=== PATIENT | male | born 1945 | race Caucasian/White ===

== ENCOUNTER 2023-01-24 13:26 | Inpatient (IN) | payer OTHER, MEDICARE ==
[2023-01-24] VITALS (14 sets, daily range): BP systolic 130–158; BP diastolic 67–82
[~2023-01-24] VITALS: Ht 172.7 cm; Wt 83.4 kg
[~2023-01-24 13:26] MED LIST: ALBU90OI INH; ATEN100 PO; ATEN25 PO; ATOR10 PO; AZIT250 PO; Aspir 8181 MG PO; DOCU100 PO; DOXA2 PO; DOXA4 PO; FISH1000 PO; Hair, Skin & N1 EACH PO; LISI10 PO; LISI20 PO; LISI5 PO; MIRALAX17 GM PO; ROSU5 PO; RXCODGUASY PO
[2023-01-24 16:21] LABS: Hematocrit 20.2 % (37.0-53.0); Hemoglobin 7.3 g/dL (13.5-17.5); Mean Corpuscular HGB 38.2 pg (26.0-34.0); Mean Corpuscular HGB Conc 36.1 g/dL (31.5-36.5); Mean Corpuscular Volume 106 fL (80-100); Platelet Count 104 K/mm3 (150-400); RDW Coefficient Variation 15.5 % (11.7-14.2); RDW Standard Deviation 59.1 fL (35.1-46.3); Red Blood Cell Count 1.91 M/mm3 (4.30-5.90)
[2023-01-24 16:23] LABS: White Blood Cell Count 0.93 K/mm3 (4.00-11.30)
[2023-01-24 16:43] LABS: Albumin, Blood 3.2 g/dL (3.4-5.0); Albumin/Globulin Ratio 1.1 (0.8-1.8); Bilirubin, Total 0.8 mg/dL (0.1-1.0); Bun/Creatinine Ratio 16.8 (12.0-20.0); Calcium, Blood 8.6 mg/dL (8.5-10.1); Creatinine, Blood 0.89 mg/dL (0.60-1.20); Globulin, Blood 2.8 g/dL (2.2-4.0); Potassium, Blood 4.1 mmol/L (3.5-5.5)
[2023-01-24 16:47] LABS: BASOPHILS PERCENT MAN 0 % (0-2); EOSINOPHILS ABSOLUTE MAN 0.01 K/mm3 (0.00-0.68); EOSINOPHILS PERCENT MAN 2 % (0-6); LYMPHOCYTES ABSOLUTE MAN 0.76 K/mm3 (0.84-5.20); LYMPHOCYTES PERCENT MAN 82 % (21-46); MONOCYTES PERCENT MAN 0 % (4-13); NEUTROPHILS ABSOLUTE MAN 0.14 K/mm3 (1.96-9.15); SEG NEUTROPHILS PERCENT MAN 16 % (41-73); TOTAL CELLS COUNTED 50
[2023-01-24 16:54] LABS: Source, Urine Voided
[2023-01-24 16:57] LABS: Appearance, Urine Clear (Clear); Bilirubin, Urine Neg (Neg); Blood, Urine Neg (Neg); Color, Urine Yellow (P-Yellow); Glucose Qualitative, Urine Neg (Neg); Ketones, Urine Neg (Neg); Leukocyte Esterase, Urine Neg (Neg); Nitrite, Urine Neg (Neg); Protein, Urine Neg (Neg); Specific Gravity, Urine 1.015 (1.003-1.022); Urobilinogen, Urine NORM (Normal)
[2023-01-24 17:41] LABS: IMMATURE RETIC FRACTION 16.5 % (2.3-16.0); RETIC HGB EQUIVALENT 41.1 pg (28.20-36.60); RETICULOCYTE COUNT PERCENT 2.19 % (0.50-2.50)
[2023-01-24 18:05] LABS: Percent Saturation 16.8 % (20.0-50.0)
[2023-01-24 20:58] LABS: Hematocrit 19.8 % (37.0-53.0); Mean Corpuscular HGB 38.3 pg (26.0-34.0); Mean Corpuscular HGB Conc 35.4 g/dL (31.5-36.5); Mean Corpuscular Volume 108 fL (80-100); Mean Platelet Volume 10.2 fL (9.1-12.4); Platelet Count 96 K/mm3 (150-400); RDW Coefficient Variation 15.6 % (11.7-14.2); RDW Standard Deviation 60.4 fL (35.1-46.3); Red Blood Cell Count 1.83 M/mm3 (4.30-5.90)
[2023-01-24 21:03] LABS: BASOPHILS PERCENT AUTO 0 % (0-2); EOSINOPHILS ABSOLUTE AUTO 0.03 K/mm3 (0.00-0.68); EOSINOPHILS PERCENT AUTO 4 % (0-6); IMMATURE GRAN PERCENT AUTO 0 % (0-1); LYMPHOCYTES ABSOLUTE AUTO 0.43 K/mm3 (0.84-5.20); LYMPHOCYTES PERCENT AUTO 60 % (21-46); MONOCYTES ABSOLUTE AUTO 0.05 K/mm3 (0.16-1.47); MONOCYTES PERCENT AUTO 7 % (4-13); NEUTROPHILS ABSOLUTE AUTO 0.21 K/mm3 (1.96-9.15); NEUTROPHILS PERCENT AUTO 29 % (41-73)
[2023-01-24 21:23] LABS: White Blood Cell Count 0.72 K/mm3 (4.00-11.30)
[2023-01-24] MEDS ORDERED: METO25 PO (22:20)
[2023-01-25] VITALS (11 sets, daily range): BP systolic 114–164; BP diastolic 62–87
[2023-01-25 04:31] LABS: Hematocrit 21.5 % (37.0-53.0); Hemoglobin 7.8 g/dL (13.5-17.5); Mean Corpuscular HGB 37.3 pg (26.0-34.0); Mean Corpuscular HGB Conc 36.3 g/dL (31.5-36.5); Mean Platelet Volume 10.3 fL (9.1-12.4); Platelet Count 103 K/mm3 (150-400); RDW Coefficient Variation 16.9 % (11.7-14.2); RDW Standard Deviation 62.8 fL (35.1-46.3); Red Blood Cell Count 2.09 M/mm3 (4.30-5.90)
[2023-01-25 04:36] LABS: BASOPHILS PERCENT AUTO 0 % (0-2); EOSINOPHILS ABSOLUTE AUTO 0.01 K/mm3 (0.00-0.68); EOSINOPHILS PERCENT AUTO 1 % (0-6); IMMATURE GRAN PERCENT AUTO 0 % (0-1); LYMPHOCYTES ABSOLUTE AUTO 0.38 K/mm3 (0.84-5.20); LYMPHOCYTES PERCENT AUTO 47 % (21-46); MONOCYTES PERCENT AUTO 12 % (4-13); Mean Corpuscular Volume 103 fL (80-100); NEUTROPHILS ABSOLUTE AUTO 0.32 K/mm3 (1.96-9.15); NEUTROPHILS PERCENT AUTO 40 % (41-73)
[2023-01-25 04:37] LABS: White Blood Cell Count 0.81 K/mm3 (4.00-11.30)
[2023-01-25 05:08] LABS: Albumin, Blood 2.7 g/dL (3.4-5.0); Albumin/Globulin Ratio 0.9 (0.8-1.8); Bun/Creatinine Ratio 17.4 (12.0-20.0); Calcium, Blood 7.9 mg/dL (8.5-10.1); Creatinine, Blood 1.09 mg/dL (0.60-1.20); Globulin, Blood 2.9 g/dL (2.2-4.0); Magnesium, Blood 1.6 mg/dL (1.6-2.4); Potassium, Blood 4.6 mmol/L (3.5-5.5); Total Protein, Blood 5.6 g/dL (6.4-8.2)
--- NOTE | 2023-01-25 17:59 | NUR ---
SUMMARY NO ACUTE CHANGES T/O SHIFT. PT'S JOSE COHEN THIS AM, HAS VOIDED ONCE. STOOD AT BEDSIDE AND THEN SAT IN RECLINER FOR APPROXIMATELY 1 HR. PAINFUL WITH MOVEMENT. MEDICATED PER ORDERS FOR PAIN. CALL LIGHT IN REACH.
[2023-01-26 02:14] VITALS: BP 133/75
--- NOTE | 2023-01-26 06:44 | NUR ---
SHIFT SUMMARY PT A&OX4, AND COOPERATIVE WITH CARE. NO ACUTE CHANGES, VSS. MEDICATING FOR PAIN PER EMAR. NPO EXCEPT FOR WATER WITH MEDICATION. SBA TO VOID. PT REPORTS NOT PASSING ANY FLATUS YET. MIDLINE GERARD WITH SMALL AMOUNT OF DRIED DRAINAGE, COMPRESSED. ABD BINDER IN PLACE WITH HEATING PAD FOR COMFORT. CALLS APPROPRIATELY, CALL LIGHT WITHIN REACH.
[2023-01-26 07:42] VITALS: BP 146/77
[2023-01-26 09:23] LABS: Hematocrit 21.6 % (37.0-53.0); Hemoglobin 7.5 g/dL (13.5-17.5); Mean Corpuscular HGB 36.6 pg (26.0-34.0); Mean Corpuscular HGB Conc 34.7 g/dL (31.5-36.5); Mean Corpuscular Volume 105 fL (80-100); Mean Platelet Volume 9.9 fL (9.1-12.4); Platelet Count 100 K/mm3 (150-400); RDW Coefficient Variation 17.3 % (11.7-14.2); RDW Standard Deviation 66.4 fL (35.1-46.3); Red Blood Cell Count 2.05 M/mm3 (4.30-5.90)
[2023-01-26 09:33] LABS: BASOPHILS PERCENT AUTO 0 % (0-2); EOSINOPHILS ABSOLUTE AUTO 0.05 K/mm3 (0.00-0.68); EOSINOPHILS PERCENT AUTO 6 % (0-6); IMMATURE GRAN PERCENT AUTO 0 % (0-1); LYMPHOCYTES ABSOLUTE AUTO 0.54 K/mm3 (0.84-5.20); LYMPHOCYTES PERCENT AUTO 61 % (21-46); MONOCYTES ABSOLUTE AUTO 0.07 K/mm3 (0.16-1.47); MONOCYTES PERCENT AUTO 8 % (4-13); NEUTROPHILS ABSOLUTE AUTO 0.23 K/mm3 (1.96-9.15); NEUTROPHILS PERCENT AUTO 26 % (41-73)
[2023-01-26 09:34] LABS: Bun/Creatinine Ratio 15.7 (12.0-20.0); Calcium, Blood 7.5 mg/dL (8.5-10.1); Creatinine, Blood 0.89 mg/dL (0.60-1.20); White Blood Cell Count 0.89 K/mm3 (4.00-11.30)
[2023-01-26 09:48] LABS: BASOPHILS PERCENT MAN 0 % (0-2); EOSINOPHILS ABSOLUTE MAN 0.03 K/mm3 (0.00-0.68); EOSINOPHILS PERCENT MAN 4 % (0-6); LYMPHOCYTES % ATYPICAL MANUAL 4 % (0-0); LYMPHOCYTES ABSOLUTE MAN 0.67 K/mm3 (0.84-5.20); LYMPHOCYTES PERCENT MAN 72 % (21-46); MONOCYTES ABSOLUTE MAN 0.07 K/mm3 (0.16-1.47); MONOCYTES PERCENT MAN 8 % (4-13); SEG NEUTROPHILS PERCENT MAN 12 % (41-73); TOTAL CELLS COUNTED 25
[2023-01-26 14:56] VITALS: BP 147/71
--- NOTE | 2023-01-26 15:48 | NUR ---
SUMMARY NO ACUTE CHANGES THUS FAR IN SHIFT. VSS. PT GOT UP TO CHAIR AND HAS AMBULATED IN ROOM. DECLINED AMBULATING IN [place] DUE TO NEUTROPENIC PRECAUTIONS, STATES WILL CONTINUE TO AMBULATE IN ROOM, ENCOURAGED PT OOB, VERBALIZED UNDERSTANDING. HAS NOT PASSED FLATUS. MEDICATED PER ORDERS FOR PAIN. CALL LIGHT IN REACH, SPOUSE BEDSIDE.
--- NOTE | 2023-01-26 16:12 | NUR ---
TURNING CARE OVER TO THOMAS Campbell RN.
[2023-01-26 19:35] VITALS: BP 153/78
[2023-01-27 02:51] VITALS: BP 149/86
--- NOTE | 2023-01-27 05:21 | NUR ---
SHIFT SUMMARY PT A&OX4, PLEASANT AND COOPERATIVE WITH CARE. NO ACUTE CHANGES, VSS. MEDICATING FOR PAIN PER EMAR. PT REMAINS NPO. NO FLATUS. INDEPENDENT IN ROOM. GERARD DRESSING WITH SMALL AMOUNT OF DRIED SS DRAINAGE. ABD BINDER IN PLACE. CALLS APPROPRIATELY, CALL LIGHT WITHIN REACH.
[2023-01-27 05:32] LABS: Hemoglobin 7.8 g/dL (13.5-17.5); Mean Corpuscular HGB 37.1 pg (26.0-34.0); Mean Corpuscular HGB Conc 35.5 g/dL (31.5-36.5); Mean Corpuscular Volume 105 fL (80-100); Mean Platelet Volume 10.5 fL (9.1-12.4); Platelet Count 102 K/mm3 (150-400); RDW Coefficient Variation 16.8 % (11.7-14.2); RDW Standard Deviation 63.2 fL (35.1-46.3)
[2023-01-27 05:42] LABS: White Blood Cell Count 0.67 K/mm3 (4.00-11.30)
[2023-01-27 06:00] LABS: Albumin, Blood 2.7 g/dL (3.4-5.0); BASOPHILS PERCENT MAN 0 % (0-2); Bilirubin, Total 0.8 mg/dL (0.1-1.0); Bun/Creatinine Ratio 13.8 (12.0-20.0); Calcium, Blood 7.7 mg/dL (8.5-10.1); Creatinine, Blood 0.87 mg/dL (0.60-1.20); EOSINOPHILS ABSOLUTE MAN 0.02 K/mm3 (0.00-0.68); EOSINOPHILS PERCENT MAN 4 % (0-6); Globulin, Blood 2.8 g/dL (2.2-4.0); LYMPHOCYTES ABSOLUTE MAN 0.42 K/mm3 (0.84-5.20); LYMPHOCYTES PERCENT MAN 64 % (21-46); MONOCYTES PERCENT MAN 0 % (4-13); NEUTROPHILS ABSOLUTE MAN 0.21 K/mm3 (1.96-9.15); SEG NEUTROPHILS PERCENT MAN 32 % (41-73); TOTAL CELLS COUNTED 25; Total Protein, Blood 5.5 g/dL (6.4-8.2)
[2023-01-27 07:30] VITALS: BP 159/84
--- NOTE | 2023-01-27 10:54 | NUR ---
NG TUBE PLACED AT THIS TIME. PT TOLERATED WELL. INSERTED IN TO RIGHT NARE. CONNECTED TO L.I.S. APPROX 50 OF RETURN BEFORE HAVING TO CLAMP SO PATIENT COULD GO TO CT. WILL RECONNECT ONCE PATIENT RETURNS.
--- NOTE | 2023-01-27 11:47 | NUR ---
PLACED BACK ONTO LOW INTERMITTENT SUCTION. PT LAYING IN BED REPORTS FEELING SOME RELIEF WITH NGT IN PLACE.
[2023-01-27 14:43] VITALS: BP 168/80
--- NOTE | 2023-01-27 16:10 | NUR ---
SHIFT SUMMARY POD 3 EX LAP PT REPORTS PAIN AND DISCOMFORT HAS IMPROVED SINCE NG TUBE WAS PLACED. APPROX 200ML OUT DURING SHIFT. ABDOMEN IS SOFTER TO TOUCH. PT SPENDING TIME IN HIS CHAIR DURING SHIFT. REPORTS FEELING THE URGE TO PASS FLATUS BUT UNABLE TO AT THIS TIME. PAIN MEDS PER EMAR. GERARD DRESSING REMAINS CDI, GREEN LIGHT ON.
[2023-01-27 19:39] VITALS: BP 164/81
[2023-01-28 00:22] VITALS: BP 148/79
[2023-01-28 04:04] VITALS: BP 155/82
[2023-01-28 05:07] LABS: Hematocrit 24.1 % (37.0-53.0); Hemoglobin 8.4 g/dL (13.5-17.5); Mean Corpuscular HGB 36.4 pg (26.0-34.0); Mean Corpuscular HGB Conc 34.9 g/dL (31.5-36.5); Mean Corpuscular Volume 104 fL (80-100); Mean Platelet Volume 10.2 fL (9.1-12.4); Platelet Count 121 K/mm3 (150-400); RDW Coefficient Variation 16.7 % (11.7-14.2); RDW Standard Deviation 64.1 fL (35.1-46.3); Red Blood Cell Count 2.31 M/mm3 (4.30-5.90)
[2023-01-28 05:34] LABS: White Blood Cell Count 0.78 K/mm3 (4.00-11.30)
[2023-01-28 06:14] LABS: BASOPHILS PERCENT MAN 0 % (0-2); EOSINOPHILS PERCENT MAN 0 % (0-6); LYMPHOCYTES % ATYPICAL MANUAL 8 % (0-0); LYMPHOCYTES ABSOLUTE MAN 0.49 K/mm3 (0.84-5.20); LYMPHOCYTES PERCENT MAN 56 % (21-46); MONOCYTES ABSOLUTE MAN 0.03 K/mm3 (0.16-1.47); MONOCYTES PERCENT MAN 4 % (4-13); NEUTROPHILS ABSOLUTE MAN 0.24 K/mm3 (1.96-9.15); SEG NEUTROPHILS PERCENT MAN 32 % (41-73); TOTAL CELLS COUNTED 25
[2023-01-28 06:29] LABS: Bun/Creatinine Ratio 16.6 (12.0-20.0); Calcium, Blood 7.9 mg/dL (8.5-10.1); Creatinine, Blood 0.72 mg/dL (0.60-1.20); Potassium, Blood 3.6 mmol/L (3.5-5.5)
[2023-01-28 07:26] VITALS: BP 163/84
--- NOTE | 2023-01-28 09:00 | NUR ---
01/28/23 0900 Calista Adler VERIFICATIONS: EDIT CHART.
[2023-01-28 15:20] VITALS: BP 160/87
--- NOTE | 2023-01-28 18:56 | NUR ---
PT SUMMARY: PT NGT REMAINS IN PLACE HOOKED UP TO LOW INTERMITTENT SUCTION 200 MLS OF DARK BROWN GASTRIC CONTENTS COLLECTED FOR THE SHIFT. VITALS HAS BEEN STABLE. GERARD DRESSING IN PLACE REMAINED CDI, PT POD4 WITH TENDER ABD PAIN MEDS GIVEN PRN, ALSO NAUSEA MEDS TWICE FOR THE SHIFT. PT HAS BEEN GETTING UP IN THE CHAIR AND WHEN USING URINAL PT C/O PASSING A LOT OF GAS ALSO BURPING A LOT. PT REQUESTED SMALL AMOUNTS OF ICE CHIPS TO HELP WITH NAUSEA INSTEAD OF WATER SIPS. NS RUNNIGN AT 100MLS/HR. NO OTHER ISSUES REPORTED FOR THE SHIFT, ABLE TO MAKE NEEDS KNOWN WILL REPORT TO ONCOMING SHIFT
[2023-01-28 20:06] VITALS: BP 166/79
[2023-01-29] VITALS (7 sets, daily range): BP systolic 131–161; BP diastolic 66–80
--- NOTE | 2023-01-29 04:23 | NUR ---
NG TUBE UPDATE. PT REPORTED ABDOMINAL PAIN AND HICCUPS. NOTICED THAT NG OUTPUT WAS STILL ABSENT. NOTED THE NG WAS DISPLACED BUT STILL PRESENT IN NOSE AND OROPHARANX. DISCUSSED CASE WITH ESAU SPAIN RN. ADVANCED TUBE AND RESECURED TO BRIDGE OF THE NOSE. FLASH OF GI BROWN GI CONTENTS PRESENT. PT REPORTED IMPROVEMENT OF SYMPTOMS.
[2023-01-29 05:21] LABS: Hematocrit 22.2 % (37.0-53.0); Hemoglobin 7.6 g/dL (13.5-17.5); Mean Corpuscular HGB 36.7 pg (26.0-34.0); Mean Corpuscular HGB Conc 34.2 g/dL (31.5-36.5); Mean Corpuscular Volume 107 fL (80-100); Mean Platelet Volume 10.1 fL (9.1-12.4); Platelet Count 110 K/mm3 (150-400); RDW Coefficient Variation 17.3 % (11.7-14.2); Red Blood Cell Count 2.07 M/mm3 (4.30-5.90)
[2023-01-29 05:37] LABS: Bun/Creatinine Ratio 20.7 (12.0-20.0); Calcium, Blood 7.7 mg/dL (8.5-10.1); Creatinine, Blood 0.72 mg/dL (0.60-1.20); Potassium, Blood 3.7 mmol/L (3.5-5.5)
[2023-01-29 05:47] LABS: BASOPHILS PERCENT AUTO 0 % (0-2); EOSINOPHILS PERCENT AUTO 0 % (0-6); IMMATURE GRAN PERCENT AUTO 0 % (0-1); LYMPHOCYTES ABSOLUTE AUTO 0.49 K/mm3 (0.84-5.20); LYMPHOCYTES PERCENT AUTO 58 % (21-46); MONOCYTES PERCENT AUTO 12 % (4-13); NEUTROPHILS ABSOLUTE AUTO 0.26 K/mm3 (1.96-9.15); NEUTROPHILS PERCENT AUTO 31 % (41-73)
[2023-01-29 05:50] LABS: White Blood Cell Count 0.85 K/mm3 (4.00-11.30)
[2023-01-29 05:57] LABS: BASOPHILS PERCENT MAN 0 % (0-2); EOSINOPHILS PERCENT MAN 0 % (0-6); LYMPHOCYTES % ATYPICAL MANUAL 16 % (0-0); LYMPHOCYTES PERCENT MAN 32 % (21-46); MONOCYTES ABSOLUTE MAN 0.03 K/mm3 (0.16-1.47); MONOCYTES PERCENT MAN 4 % (4-13); SEG NEUTROPHILS PERCENT MAN 48 % (41-73); TOTAL CELLS COUNTED 25
--- NOTE | 2023-01-29 06:00 | NUR ---
SHIFT SUMMARY NOC. PT POD #5 FOR RIGHT HEMICOLECTOMY. PT HAS AN NG TUBE PLACED TO LOW INTERMITTENT SUCTION AND PRODUCING BROWN OUTPUT. SEE EARLIER NOTE REGARDING NG. PT'S MIDLINE GERARD IS COMPRESSED, DRY, AND INTACT WITH MILD DRIED DRAINAGE. PT IS NPO BUT TOLERATING ICE CHIPS. PT IS VOIDING AND USES CALL LIGHT APPROPRIATLY.
--- NOTE | 2023-01-29 18:30 | NUR ---
SHIFT SUMMARY: POD 5 RIGHT YANIRA COLECTOMY PATIENT IS A&OX4. VS ARE WNL AND IS ON RA. PAIN IS MANAGED WITH PO OXY, TYLENOL, AND IV FENTANYL. PATIENT IS PASSING GAS AND IS VOIDING. PATIENT REPORTS "MOST OF MY PAIN IS FROM MY HICCUPS AND THESE SPASMS". THE HICCUPS HAVE BEEN MANAGED WITH PO THORAZINE. WHEN THIS NURSE ASKED WHERE HE REPORTS THE "SPASMS" HE POINTS TO HIS EPIGASTRIC AREA WHICH IS MOST LIKELY CAUSED FROM HIS NG TUBE. PATIENTS NG TUBE IS SECURED WITH TAPE AND THE TUBE IS PINNED TO HIS GOWN. HIS NG OUTPUT IS MUCUS DARK BROWN OUTPUT. PATIENT HAS ONLY 125 CC'S IN HIS NG TUBE CANESTER OUTPUT SINCE ROUGHLY 1300 TODAY. PATIENT HAS DENIED NAUSEA/VOMITING THROUGHOUT SHIFT. PATIENTS NG TUBE WAS EVEN CLAMPED SO HE COULD SHOWER AND HE TOLERATED IT WELL WITH NO SPASMS OR HICCUPS UNTIL HE WAS RECONNECTED TO HIS LOW INTERMITTENT SUCTION. THIS NURSE UPDATED DR. ELIZALDE ABOUT HIS PROGRESS AND WHAT THIS NURSE NOTICED AND ASKED IF THE PATIENT COULD BE CLAMPED WITH NO SUCTION TO SEE IF HE COULD TOLERATE IT BY HAVING NO NAUSEA OR VOMITING AND NO BLOATING OF HIS ABD. DR. ELIZALDE RESPONDED WITH "PATIENT NEEDS TO HAVE NG TUBE IN. I WOULD FLUSH IT. TEACH YOUR COLLEAGUES IF AN NGT IS IN THE PATIENT, IT SHOULD BE FLUSHED, NOT CAPPED. HIS SPASMS ARE HIS CRAMPING AGAINST FULL STOMACH AGAINST THE LES". THIS NURSE FLUSHED THE PATIENTS NG TUBE WITH SLIGHT RELIEF FOR PATIENT BUT THE SPASMS CONTINUED SHORTLY AFTERWARDS. PATIENT ALSO HAD A PICC LINE PLACED IN HIS RIGHT UPPER ARM WITH TPN RUNNING TO HELP WITH HIS NUTRITION. PATIENT IS LAYING IN BED WITH CALL LIGHT IN REACH.
[2023-01-30 00:05] VITALS: BP 155/82
[2023-01-30 04:23] VITALS: BP 152/71
[2023-01-30 05:32] LABS: Anion Gap 5 mmol/L (6-16); Blood Urea Nitrogen 15 mg/dL (8-24); Bun/Creatinine Ratio 20.6 (12.0-20.0); CO2, Blood 26 mmol/L (21-32); Calcium, Blood 7.7 mg/dL (8.5-10.1); Chloride, Blood 116 mmol/L (98-108); Creatinine, Blood 0.73 mg/dL (0.60-1.20); Glomerular Filtration Rate 94 (60-); Glucose, Blood 148 mg/dL (70-99); Magnesium, Blood 2.1 mg/dL (1.6-2.4); Phosphorus, Blood 1.4 mg/dL (2.5-4.9); Potassium, Blood 3.4 mmol/L (3.5-5.5); Sodium, Blood 147 mmol/L (136-145); Triglycerides 87 mg/dL (30-160)
--- NOTE | 2023-01-30 06:14 | NUR ---
SHIFT SUMMARY PT HAS RESTED OFF AND ON T/O THE NIGHT, HE HAS BEEN UNCOMFORTABLE D/T TO ABD PAIN, HICCUPS AND SPASMS. PER DAYSHIFT RN REPORT DR. ELIZALDE DID NOT WANT TO REMOVE TUBE YET. MEDICATED PER EMAR ORDERS T/O THE NIGHT PRN, PT REPORTS RELIEF WITH MEDICATIONS. OUTPUT FROM NG HAS DECREASED SIGNIFICANTLY FROM PREVIOUS SHIFTS. PT REPORTING NO NAUSEA OR FULLNESS. BOWEL TONES ARE HYPERACTIVE, AND PT REPORTS THAT HE IS PASSING GAS. 125 ML GREEN DISCHARGE FROM NG RECORDED BY DAYSHIFT RN AT SHIFT CHANGE. DURING THE NIGHT PT PUT OUT ANOTHER 125 ML. PT HAS BEEN TAKING IN ICE CHIPS SO THAT COULD BE CONTRIBUTING TO THAT VOLUME. DISCHARGE IN TUBE APPEARS CLEAR. VITALS ARE STABLE. CPN INFUSING, BG STABLE. DRESSING TO ABD C/D/I, BED IN LOWEST POSITION, CALL LIGHT WITHIN REACH.
[2023-01-30 08:00] VITALS: BP 140/86
[2023-01-30 09:54] LABS: Hematocrit 20.7 % (37.0-53.0); Hemoglobin 7.2 g/dL (13.5-17.5); Mean Corpuscular HGB 37.3 pg (26.0-34.0); Mean Corpuscular HGB Conc 34.8 g/dL (31.5-36.5); Mean Corpuscular Volume 107 fL (80-100); Platelet Count 109 K/mm3 (150-400); RDW Coefficient Variation 17.2 % (11.7-14.2); RDW Standard Deviation 66.4 fL (35.1-46.3); Red Blood Cell Count 1.93 M/mm3 (4.30-5.90)
[2023-01-30 09:57] LABS: BASOPHILS PERCENT AUTO 0 % (0-2); EOSINOPHILS ABSOLUTE AUTO 0.02 K/mm3 (0.00-0.68); EOSINOPHILS PERCENT AUTO 3 % (0-6); IMMATURE GRAN ABSOLUTE AUTO 0.01 K/mm3 (0.00-0.10); IMMATURE GRAN PERCENT AUTO 1 % (0-1); LYMPHOCYTES ABSOLUTE AUTO 0.55 K/mm3 (0.84-5.20); LYMPHOCYTES PERCENT AUTO 68 % (21-46); MONOCYTES ABSOLUTE AUTO 0.09 K/mm3 (0.16-1.47); MONOCYTES PERCENT AUTO 11 % (4-13); NEUTROPHILS ABSOLUTE AUTO 0.14 K/mm3 (1.96-9.15); NEUTROPHILS PERCENT AUTO 17 % (41-73)
[2023-01-30 09:58] LABS: White Blood Cell Count 0.81 K/mm3 (4.00-11.30)
[2023-01-30 10:49] LABS: BASOPHILS PERCENT MAN 0 % (0-2); EOSINOPHILS ABSOLUTE MAN 0.03 K/mm3 (0.00-0.68); EOSINOPHILS PERCENT MAN 4 % (0-6); LYMPHOCYTES % ATYPICAL MANUAL 4 % (0-0); LYMPHOCYTES ABSOLUTE MAN 0.61 K/mm3 (0.84-5.20); LYMPHOCYTES PERCENT MAN 72 % (21-46); MONOCYTES PERCENT MAN 0 % (4-13); NEUTROPHILS ABSOLUTE MAN 0.16 K/mm3 (1.96-9.15); SEG NEUTROPHILS PERCENT MAN 20 % (41-73); TOTAL CELLS COUNTED 25
[2023-01-30 14:50] VITALS: BP 153/67
--- NOTE | 2023-01-30 16:18 | NUR ---
SHIFT SUMMARY: POD 6 RIGHT YANIRA COLECTOMY PATIENT IS A&OX4. VS ARE WNL AND IS ON RA. PATIENT DENIES PAIN NOW THAT THE NG TUBE WAS D/C'D THIS MORNING BY DR. ELIZALDE. PATIENT CONTINUES TO TOLERATE ICE CHIPS/SMALL SIPS OF WATER. PATIENTS ABD HAS A MEDIPORE DRESSING MIDLINE THAT IS C/D/I. PATIENT HAS HIS PICC LINE IN HIS NEREIDA THAT HAS CPN RUNNING IN IT CURRENTLY. PATIENT IS A SBA WITH AMBULATION DUE TO IV POLE/CORDS. PATIENT CALLS APPROPRIATLEY. HE IS LAYING IN BED WITH CALL LIGHT IN REACH. THE PLAN IS TO ENCOURAGE AMBULATION AND TO HAVE A BM.
[2023-01-30 19:20] VITALS: BP 150/87
[2023-01-31] VITALS (7 sets, daily range): BP systolic 142–178; BP diastolic 77–98
[2023-01-31 04:30] LABS: BASOPHILS PERCENT AUTO 0 % (0-2); EOSINOPHILS ABSOLUTE AUTO 0.05 K/mm3 (0.00-0.68); EOSINOPHILS PERCENT AUTO 4 % (0-6); Hematocrit 19.2 % (37.0-53.0); Hemoglobin 6.7 g/dL (13.5-17.5); Mean Corpuscular HGB 37.2 pg (26.0-34.0); Mean Corpuscular HGB Conc 34.9 g/dL (31.5-36.5); Mean Corpuscular Volume 107 fL (80-100); Mean Platelet Volume 10.4 fL (9.1-12.4); Platelet Count 100 K/mm3 (150-400); RDW Coefficient Variation 16.6 % (11.7-14.2); RDW Standard Deviation 63.6 fL (35.1-46.3); White Blood Cell Count 1.18 K/mm3 (4.00-11.30)
[2023-01-31 04:40] LABS: IMMATURE GRAN PERCENT AUTO 0 % (0-1); LYMPHOCYTES ABSOLUTE AUTO 0.67 K/mm3 (0.84-5.20); LYMPHOCYTES PERCENT AUTO 57 % (21-46); MONOCYTES ABSOLUTE AUTO 0.19 K/mm3 (0.16-1.47); MONOCYTES PERCENT AUTO 16 % (4-13); NEUTROPHILS ABSOLUTE AUTO 0.27 K/mm3 (1.96-9.15); NEUTROPHILS PERCENT AUTO 23 % (41-73)
[2023-01-31 04:47] LABS: Albumin, Blood 2.4 g/dL (3.4-5.0); Bilirubin, Total 0.6 mg/dL (0.1-1.0); Bun/Creatinine Ratio 18.8 (12.0-20.0); Calcium, Blood 7.9 mg/dL (8.5-10.1); Creatinine, Blood 0.74 mg/dL (0.60-1.20); Globulin, Blood 2.5 g/dL (2.2-4.0); Potassium, Blood 3.4 mmol/L (3.5-5.5); Total Protein, Blood 4.9 g/dL (6.4-8.2)
--- NOTE | 2023-01-31 14:56 | NUR ---
PT HAD A SMALL BM TODAY, DENIES ANY ABD PAIN OR DISCOMFORT, TOLERATING SIPS SMALL AMOUNTS OF CLEAR LIQUIDS WELL, REPORTS HAVING NO APPETITE, DENIES ANY NAUSEA, AMBULATED DOWN THE HALLS, CONT. TO MONITOR FOR ANY CHANGES.
--- NOTE | 2023-01-31 18:27 | NUR ---
SUMMARY PT REPORT ABD IS FEELING "PRETTY GOOD" TODAY, DENIES ANY PAIN OR NAUSEA, AMBULATED DOWN HALLS, TOLERATING SMALL AMOUNTS OF CLEAR LIQUIDS WELL, 1 U PRBC INFUSING, INDEPENDENT IN ROOM, TOOK A SHOWER TODAY, MEDIPORE DRESSING CHANGED, ABD INCISION CLEAN AND DRY, BAY INTACT, NO REDNESS NOTED, NO ACUTE CHANGS THIS SHIFT.
[2023-02-01 02:05] VITALS: BP 141/80
--- NOTE | 2023-02-01 04:44 | NUR ---
SHIFT SUMMARY PATIENT AOX4, UP IN CHAIR T/O NIGHT. CPN INFUSING, FLUIDS AND ABX INFUSING. PATIENT DID RECIEVE 1 UNIT OF BLOOD, VSS. LUNGS SOUNDS CLEAR BUT DIM IN BASES. IS ENCOURAGED. PATIENT USES URINAL AT BEDSIDE ABLE TO TAKE IN SOME CL SIPS. DENIES N/V. MIDLINE DRESSING WITH MEDIPORE IS C/D/I. CALL LIGHT IN REACH WILL REPORT TO DAY RN.
[2023-02-01 05:18] VITALS: BP 139/74
[2023-02-01 05:38] LABS: BASOPHILS ABSOLUTE AUTO 0.01 K/mm3 (0.00-0.23); BASOPHILS PERCENT AUTO 1 % (0-2); EOSINOPHILS ABSOLUTE AUTO 0.08 K/mm3 (0.00-0.68); EOSINOPHILS PERCENT AUTO 5 % (0-6); Hematocrit 21.5 % (37.0-53.0); Hemoglobin 7.5 g/dL (13.5-17.5); Mean Corpuscular HGB 35.5 pg (26.0-34.0); Mean Corpuscular HGB Conc 34.9 g/dL (31.5-36.5); Platelet Count 94 K/mm3 (150-400); RDW Standard Deviation 67.3 fL (35.1-46.3); Red Blood Cell Count 2.11 M/mm3 (4.30-5.90); White Blood Cell Count 1.64 K/mm3 (4.00-11.30)
[2023-02-01 05:41] LABS: IMMATURE GRAN ABSOLUTE AUTO 0.01 K/mm3 (0.00-0.10); IMMATURE GRAN PERCENT AUTO 1 % (0-1); LYMPHOCYTES ABSOLUTE AUTO 0.95 K/mm3 (0.84-5.20); LYMPHOCYTES PERCENT AUTO 58 % (21-46); MONOCYTES ABSOLUTE AUTO 0.18 K/mm3 (0.16-1.47); MONOCYTES PERCENT AUTO 11 % (4-13); Mean Corpuscular Volume 102 fL (80-100); NEUTROPHILS ABSOLUTE AUTO 0.41 K/mm3 (1.96-9.15); NEUTROPHILS PERCENT AUTO 25 % (41-73)
[2023-02-01 06:34] LABS: Albumin, Blood 2.5 g/dL (3.4-5.0); Anion Gap 4 mmol/L (6-16); Blood Urea Nitrogen 15 mg/dL (8-24); Bun/Creatinine Ratio 19.4 (12.0-20.0); CO2, Blood 27 mmol/L (21-32); Calcium, Blood 8.1 mg/dL (8.5-10.1); Chloride, Blood 112 mmol/L (98-108); Creatinine, Blood 0.77 mg/dL (0.60-1.20); Glomerular Filtration Rate 93 (60-); Glucose, Blood 139 mg/dL (70-99); Phosphorus, Blood 3.4 mg/dL (2.5-4.9); Sodium, Blood 143 mmol/L (136-145)
[2023-02-01 07:37] VITALS: BP 129/86
--- NOTE | 2023-02-01 13:00 | NUR ---
[facility] [employer] SHOWER.
[2023-02-01 15:54] VITALS: BP 172/82
[2023-02-01 16:34] VITALS: BP 161/87
--- NOTE | 2023-02-01 19:17 | NUR ---
SHIFT SUMMARY HAS TOLERATED BEING ADVANCED TO CLEAR's VERY WELL. NO INCREASED ABD DISTENTION. NO N/V. ONLY COMPLAINT AFTER DINNER WAS THAT CLEAR LQ's ARE TOO SWEET. SPENT MORE TIME UP IN ROOM & UP IN CHAIR.
[2023-02-01 20:02] VITALS: BP 181/91
[2023-02-02 00:30] VITALS: BP 156/87
[2023-02-02 04:55] VITALS: BP 146/82
--- NOTE | 2023-02-02 07:22 | NUR ---
SHIFT SUMMARY POD 8 CHOLECTOMY W/O OSTOMY W/ MASS REMOVAL THAT WAS POSITIVE FOR CA. MIDLINE INCISION COVERED W/ MEDIPORE C/D/I. PT REPORTS CONTINUED PASSING GAS AND FREQUENT URGENCY URINATION T/O NIGHT. TPN INFUSING, PT HOPEFULL TO TOLERATE FULL LIQ DIET TODAY AND DECREASE TPN. PT MEDICATED 1X THIS SHIFT FOR PAIN W/ GOOD RESULTS ALLOWING HIM TO BE UP TO BATHROOM TO FRESHEN UP. NEUTROPENIC PRECAUTIONS IN PLACE, EDUCATED PT ON IMPORTANCE AND PT RIGHTS TO REQUEST ALL VISITORS TO WEAR A MASK, INCLUDING STAFF. V/U BY PT. NO ACUTE CHANGES THIS SHIFT.
[2023-02-02 07:28] VITALS: BP 143/86
[2023-02-02 07:41] LABS: Hematocrit 21.1 % (37.0-53.0); Hemoglobin 7.3 g/dL (13.5-17.5); Mean Corpuscular HGB 35.3 pg (26.0-34.0); Mean Corpuscular HGB Conc 34.6 g/dL (31.5-36.5); Mean Corpuscular Volume 102 fL (80-100); Mean Platelet Volume 10.9 fL (9.1-12.4); Platelet Count 93 K/mm3 (150-400); RDW Coefficient Variation 17.5 % (11.7-14.2); RDW Standard Deviation 65.2 fL (35.1-46.3); Red Blood Cell Count 2.07 M/mm3 (4.30-5.90)
[2023-02-02 07:47] LABS: White Blood Cell Count 0.94 K/mm3 (4.00-11.30)
[2023-02-02 08:05] LABS: Albumin, Blood 2.7 g/dL (3.4-5.0); Anion Gap 3 mmol/L (6-16); Blood Urea Nitrogen 16 mg/dL (8-24); Bun/Creatinine Ratio 20.8 (12.0-20.0); CO2, Blood 27 mmol/L (21-32); Calcium, Blood 8.3 mg/dL (8.5-10.1); Chloride, Blood 111 mmol/L (98-108); Creatinine, Blood 0.77 mg/dL (0.60-1.20); Glomerular Filtration Rate 93 (60-); Glucose, Blood 130 mg/dL (70-99); Phosphorus, Blood 3.6 mg/dL (2.5-4.9); Potassium, Blood 4.3 mmol/L (3.5-5.5); Sodium, Blood 141 mmol/L (136-145)
[2023-02-02 08:23] LABS: BASOPHILS PERCENT MAN 0 % (0-2); EOSINOPHILS ABSOLUTE MAN 0.07 K/mm3 (0.00-0.68); EOSINOPHILS PERCENT MAN 8 % (0-6); LYMPHOCYTES % ATYPICAL MANUAL 4 % (0-0); LYMPHOCYTES PERCENT MAN 60 % (21-46); METAMYELOCYTE ABSOLUTE MAN 0.03 K/mm3 (0.00-0.00); METAMYELOCYTE PERCENT MAN 4 % (0-0); MONOCYTES ABSOLUTE MAN 0.11 K/mm3 (0.16-1.47); MONOCYTES PERCENT MAN 12 % (4-13); NEUTROPHILS ABSOLUTE MAN 0.11 K/mm3 (1.96-9.15); SEG NEUTROPHILS PERCENT MAN 12 % (41-73); TOTAL CELLS COUNTED 25
[2023-02-02 14:47] VITALS: BP 177/83
--- NOTE | 2023-02-02 16:10 | NUR ---
SHIFT SUMMARY PT DOING WELL TODAY. NO ACUTE CHANGES. DIET ADVANCED TO FULL LIQS AND PT TOLERATING WELL. TPN DC'D. MIDLINE INCISION DRESSING APPEARS CDI AFTER SHOWERING. PT CONT TO PASS GAS. PT INDEP IN ROOM. DENIES PAIN. USES CALL LIGHT APPROPRIATELY.
[2023-02-02 19:46] VITALS: BP 171/79
[2023-02-03 04:36] VITALS: BP 154/80
[2023-02-03 04:47] LABS: Hemoglobin 7.7 g/dL (13.5-17.5); Mean Corpuscular HGB 35.6 pg (26.0-34.0); Mean Corpuscular Volume 102 fL (80-100); Mean Platelet Volume 11.1 fL (9.1-12.4); Platelet Count 110 K/mm3 (150-400); RDW Coefficient Variation 17.2 % (11.7-14.2); RDW Standard Deviation 63.7 fL (35.1-46.3); Red Blood Cell Count 2.16 M/mm3 (4.30-5.90); White Blood Cell Count 1.12 K/mm3 (4.00-11.30)
[2023-02-03 05:02] LABS: Albumin, Blood 2.9 g/dL (3.4-5.0); Anion Gap 4 mmol/L (6-16); Blood Urea Nitrogen 14 mg/dL (8-24); CO2, Blood 27 mmol/L (21-32); Calcium, Blood 8.9 mg/dL (8.5-10.1); Chloride, Blood 108 mmol/L (98-108); Creatinine, Blood 0.87 mg/dL (0.60-1.20); Glomerular Filtration Rate 89 (60-); Glucose, Blood 120 mg/dL (70-99); Phosphorus, Blood 3.9 mg/dL (2.5-4.9); Potassium, Blood 4.6 mmol/L (3.5-5.5); Sodium, Blood 139 mmol/L (136-145)
[2023-02-03 05:54] LABS: BAND PERCENT MAN 2 % (0-8); BASOPHILS PERCENT MAN 0 % (0-2); EOSINOPHILS PERCENT MAN 0 % (0-6); LYMPHOCYTES ABSOLUTE MAN 0.85 K/mm3 (0.84-5.20); LYMPHOCYTES PERCENT MAN 76 % (21-46); MONOCYTES ABSOLUTE MAN 0.08 K/mm3 (0.16-1.47); MONOCYTES PERCENT MAN 8 % (4-13); NEUTROPHILS ABSOLUTE MAN 0.17 K/mm3 (1.96-9.15); SEG NEUTROPHILS PERCENT MAN 14 % (41-73); TOTAL CELLS COUNTED 50
--- NOTE | 2023-02-03 06:30 | NUR ---
SHIFT SUMMARY POD 8, CHOLECTOMY, NO OSTOMY, W/ MASS REMOVAL POS CANCER. NEUTROPENIC PRECAUTIONS, WBC INCREASED FROM cL 0.94 TO 1.12 THIS A.M. A&OX4 INDEPENDANT IN ROOM. NIDLINE MEDIPORE DRESSING C/D/I, SOME ABD DISTENTION, FIRMNESS. PT REPORTS CONTINUES PASSING GAS. BT HYPOACTIVE. TPN DC'D YESTERDAY AND ADVANCED TO FULL LIQ DIET, TOLERATING WELL. NO ACUTE CHANGES THIS SHIFT, PT REPORTS SLEPT WELL. CALL LIGHT W/IN REACH, DOOR TO REMAIN CLOSED.
[2023-02-03 07:25] VITALS: BP 135/84
--- NOTE | 2023-02-03 13:17 | NUR ---
REPORTS TOLERATED LOW FIBER LUNCH WELL, PT ENCOURAGED TO AMBULATE.
--- NOTE | 2023-02-03 17:13 | NUR ---
PT WANTED TO KNOW IF HE CAN DC HOME TONIGHT, TOLERATED LOW FIBER DIET WELL, NO BM THIS SHIFT BUT REPORTS CONT. TO PASS GAS, AMBULATING IN ROOM, DR. ELIZALDE NOTIFIED, OK'D FOR PT TO DC HOME W/ MILK OF MAG BID AND F/U WITH HIM IN 1 WEEK, DR. GAN NOTIFIED, STATES SHE WILL DO DC ORDERS, PT NOTIFIED.
[2023-02-03 17:31] VITALS: BP 150/84
[2023-02-03 17:35] VITALS: BP 132/85
[2023-02-03] MEDS ORDERED: DULCOLAX400 MG/5 M PO (18:17)
[2023-02-03] MEDS ORDERED: FILG480I SC (18:17)
[2023-02-03] MEDS ORDERED: MIRALAX17 GM PO (18:18)
--- NOTE | 2023-02-03 19:31 | NUR ---
DC'D HOME, DC INSTRUCTIONS GIVEN, VERBALIZED UNDERSTANDING, BELONGINGS GIVEN TO PT'S .
== END 2023-02-03 19:24 | disposition home or self-care (01) | DRG 826 ==
LOC: ER 13:26 → ERHOLD 18:08 → SURS 18:08
PROVIDERS: Emergency Medicine; Family Medicine; Internal Medicine; Surgery; ADMIT Nurse Practitioner Acute Care
PROC: 0DB80ZZ Excision of Small Intestine, Open Approach (ICD-10-PCS; 2023-01-24)
PROC: 0D9670Z Drainage of Stomach with Drainage Device, Via Natural or Artificial Opening (ICD-10-PCS; principal; 2023-01-28)
PROC: 3E0336Z Introduction of Nutritional Substance into Peripheral Vein, Percutaneous Approach (ICD-10-PCS; 2023-01-29)
PROC: 30233N1 Transfusion of Nonautologous Red Blood Cells into Peripheral Vein, Percutaneous Approach (ICD-10-PCS; 2023-02-01)
DX: C7A.8 Other malignant neuroendocrine tumors (principal); K65.8 Other peritonitis; K56.609 Unspecified intestinal obstruction, unspecified as to partial versus complete obstruction; D61.818 Other pancytopenia; K56.7 Ileus, unspecified; K52.9 Noninfective gastroenteritis and colitis, unspecified; I10 Essential (primary) hypertension; E87.6 Hypokalemia; R06.6 Hiccough; D64.9 Anemia, unspecified; E66.9 Obesity, unspecified; R59.1 Generalized enlarged lymph nodes; E78.5 Hyperlipidemia, unspecified; R93.5 Abnormal findings on diagnostic imaging of other abdominal regions, including retroperitoneum; N40.0 Benign prostatic hyperplasia without lower urinary tract symptoms; Z88.0 Allergy status to penicillin; Z79.82 Long term (current) use of aspirin; Z79.899 Other long term (current) drug therapy; Z90.49 Acquired absence of other specified parts of digestive tract; Z98.890 Other specified postprocedural states; Z87.19 Personal history of other diseases of the digestive system; Z68.27 Body mass index [BMI] 27.0-27.9, adult
CPT/HCPCS: 36415; 71045; 74177; 80048; 80053; 80069; 81003; 82378; 82607; 82728; 82746; 82947; 83540; 83550; 83605; 83615; 83690; 83735; 84100; 84478; 84550; 85025; 85045; 86850; 86880; 86900; 86901; 86923; 87040; 88309; 88341; 88342; 93005; 93010; 94760; 96365-59; 96375; 99285-25; A9270; C9113; J0360; J0744; J1100; J1447; J1885; J1956; J2250; J2270; J2405; J2704; J2710; J2765; J3010; J3411; J3420; J3480; J7030; J7040; J7060; P9016; Q5110; Q9967

== ENCOUNTER 2023-04-11 11:18 | Emergency (ER) | payer OTHER ==
[~2023-04-11] VITALS: Ht 172.7 cm; Wt 83.9 kg
[~2023-04-11 11:18] MED LIST changes: +DULCOLAX400 MG/5 M PO; +FILG480I SC; +METO25 PO
[2023-04-11 14:59] LABS: Hematocrit 20.3 % (37.0-53.0); Hemoglobin 6.6 g/dL (13.5-17.5); Mean Corpuscular HGB 36.5 pg (26.0-34.0); Mean Corpuscular HGB Conc 32.5 g/dL (31.5-36.5); Mean Corpuscular Volume 112 fL (80-100); Mean Platelet Volume 9.5 fL (9.1-12.4); NRBC ABSOLUTE 0.08 K/mm3 (0.00-0.02); NRBC Auto 0.1 /100 WBC (0.0-0.2); Platelet Count 111 K/mm3 (150-400); RDW Coefficient Variation 17.9 % (11.7-14.2); RDW Standard Deviation 71.1 fL (35.1-46.3); Red Blood Cell Count 1.81 M/mm3 (4.30-5.90)
[2023-04-11 15:22] LABS: Albumin, Blood 3.2 g/dL (3.4-5.0); Bilirubin, Total 0.6 mg/dL (0.1-1.0); Bun/Creatinine Ratio 12.5 (12.0-20.0); Calcium, Blood 8.4 mg/dL (8.5-10.1); Creatinine, Blood 0.88 mg/dL (0.60-1.20); Globulin, Blood 3.3 g/dL (2.2-4.0); Magnesium, Blood 2.1 mg/dL (1.6-2.4); Phosphorus, Blood 3.2 mg/dL (2.5-4.9); Total Protein, Blood 6.5 g/dL (6.4-8.2); Uric Acid, Blood 5.8 mg/dL (3.5-7.2)
[2023-04-11 15:37] LABS: White Blood Cell Count 139.37 K/mm3 (4.00-11.30)
[2023-04-11 15:51] LABS: BASOPHILS PERCENT MAN 0 % (0-2); BLASTS PERCENT MAN 80 % (0-0); EOSINOPHILS PERCENT MAN 0 % (0-6); LYMPHOCYTES ABSOLUTE MAN 27.87 K/mm3 (0.84-5.20); LYMPHOCYTES PERCENT MAN 20 % (21-46); MONOCYTES ABSOLUTE MAN 1.39 K/mm3 (0.16-1.47); MONOCYTES PERCENT MAN 1 % (4-13); TOTAL CELLS COUNTED 200
[2023-04-11 16:17] LABS: Source, Urine Clean Catch
[2023-04-11 16:21] LABS: Appearance, Urine Clear (Clear); Bilirubin, Urine Neg (Neg); Blood, Urine Neg (Neg); Color, Urine Yellow (P-Yellow); Glucose Qualitative, Urine Neg (Neg); Ketones, Urine 1+ (Neg); Leukocyte Esterase, Urine Neg (Neg); Nitrite, Urine Neg (Neg); Protein, Urine Neg (Neg); Specific Gravity, Urine 1.015 (1.003-1.022); Urobilinogen, Urine NORM (Normal)
[2023-04-11] MEDS ORDERED: DOXA4 PO (18:45)
[2023-04-11] MEDS ORDERED: CEFD300 PO (18:46)
[2023-04-11 19:00] VITALS: BP 178/83
[2023-04-16 19:07] LABS: (LD) FRACTION 1 14 % (17-32); (LD) FRACTION 2 31 % (25-40); (LD) FRACTION 3 31 % (17-27); (LD) FRACTION 4 18 % (5-13); (LD) FRACTION 5 6 % (4-20); LDH 429 IU/L (121-224)
== END 2023-04-11 19:22 | disposition home or self-care (01) ==
LOC: ER 11:18
PROVIDERS: Emergency Medicine
DX: D72.829 Elevated white blood cell count, unspecified (principal); Z88.0 Allergy status to penicillin; Z79.899 Other long term (current) drug therapy; I10 Essential (primary) hypertension; E78.5 Hyperlipidemia, unspecified; Z87.891 Personal history of nicotine dependence
CPT/HCPCS: 71045; 80053; 81003; 83735; 84100; 84484; 84550; 85025; 86900; 86901; 96365; 99284-25; A9270; J0692

== ENCOUNTER 2023-04-23 01:47 | Day surgery (SDC) | payer OTHER ==
[~2023-04-23 01:47] MED LIST changes: +CEFD300 PO
[2023-04-23 07:55] VITALS: BP 141/72
[2023-04-23] MEDS ORDERED: SOMATULINE60 MG/0.2 SC (08:01)
[2023-04-23 08:12] VITALS: BP 126/60
[2023-04-23 09:20] VITALS: BP 124/80
[2023-04-23 09:50] VITALS: BP 134/65
[2023-04-23 10:53] VITALS: BP 145/84
[2023-04-23 11:20] VITALS: BP 142/86
== END 2023-04-23 11:24 | disposition home or self-care (01) ==
LOC: ATC 01:47 → EDSTATUS 04-20 17:20 → LAB FUT 04-20 17:20
DX: C7A.098 Malignant carcinoid tumors of other sites (principal); C92.00 Acute myeloblastic leukemia, not having achieved remission; D61.818 Other pancytopenia; Z88.0 Allergy status to penicillin
CPT/HCPCS: 36415; 86850; 86900; 86901; 86923; J7050; P9016